=== PATIENT | male | born 1960 | race African-American/Black ===

== ENCOUNTER 2017-01-31 07:39 | Emergency (ER) | payer MEDICAID ==
[~2017-01-31] VITALS: Ht 170.2 cm; Wt 107.0 kg
[~2017-01-31 07:39] MED LIST: ALBU6.7H3 IH; ASPI-518 PO; NITR0.4T49 PO; NITRO SL; PROAIR HFA; SIMV10TA6 PO; SULF1TAB48 PO
[2017-01-31] MEDS ORDERED: LORAZEPAM 0.5MG TABLET PO ONE (08:15)
[2017-01-31 08:27] LABS: HEMATOCRIT. 50.3 % (42.0-52.0); HEMOGLOBIN. 16.8 g/dL (14.0-18.0); MEAN CORPUSCULAR HEMOGLOBIN 29.1 pg (28.0-32.0); MEAN CORPUSCULAR VOLUME 87.2 fL (80.0-94.0); MEAN PLATELET VOLUME 7.9 fl (7.4-10.4); PLATELET 239 x1000/uL (130-400); RED BLOOD CELL COUNT 5.77 mill/uL (4.7-6.1); RED CELL DISTRIBUTION WIDTH 14.6 % (11.6-14.6)
[2017-01-31 08:46] LABS: CARBON DIOXIDE 24 mEq/L (21-32); CHLORIDE 97 mEq/L (98-107); TROPONIN I < 0.02 ng/mL (0.00-0.04)
[2017-01-31] MEDS ORDERED: SODIUM CHLORIDE 0.9% 1,000 ML IV ONE (08:53)
[2017-01-31] MEDS ORDERED: INSULIN REGULAR (HUMULIN R) 300UNITS/3ML IV ONE (09:00)
[2017-01-31 09:49] LABS: PLATELET ESTIMATE NORMAL
[2017-01-31 11:15] VITALS: BP 138/82
== END 2017-01-31 11:48 | disposition home or self-care (01) ==
LOC: ER 07:41
DX: R07.9 Chest pain, unspecified (principal); I10 Essential (primary) hypertension; E11.65 Type 2 diabetes mellitus with hyperglycemia; J45.909 Unspecified asthma, uncomplicated; F41.9 Anxiety disorder, unspecified; F17.200 Nicotine dependence, unspecified, uncomplicated; Z79.82 Long term (current) use of aspirin; Z88.8 Allergy status to other drugs, medicaments and biological substances; Z91.018 Allergy to other foods
CPT/HCPCS: 36415; 71010; 80048; 82962; 84484; 85025; 93005; 96374; 99285; J1815; J7030; Z7610

== ENCOUNTER 2018-05-21 04:44 | Emergency (ER) | payer MEDICAID ==
[~2018-05-21] VITALS: Ht 177.8 cm; Wt 90.0 kg
[~2018-05-21 04:44] MED LIST changes: -ALBU6.7H3 IH; +ALBU6.7H9 IH; +METF-414 PO; -NITRO SL; -SULF1TAB48 PO
[2018-05-21 04:46] VITALS: BP 114/91
== END 2018-05-21 09:31 | disposition left against medical advice (07) ==
LOC: ER 04:44
DX: R10.9 Unspecified abdominal pain (principal); Z53.21 Procedure and treatment not carried out due to patient leaving prior to being seen by health care provider

== ENCOUNTER 2018-10-21 05:30 | Emergency (ER) | payer MEDICAID ==
[~2018-10-21] VITALS: Ht 177.8 cm; Wt 104.0 kg
[2018-10-21] MEDS ORDERED: KETOROLAC 60MG/2ML VIAL IM ONE (07:00)
[2018-10-21] MEDS ORDERED: CYCLOBENZAPRINE 10MG TABLET PO ONE (07:00)
[2018-10-21 08:14] VITALS: BP 138/87
== END 2018-10-21 13:52 | disposition home or self-care (01) ==
LOC: ER 05:30
DX: M54.2 Cervicalgia (principal); M79.18 Myalgia, other site; E11.9 Type 2 diabetes mellitus without complications; J45.909 Unspecified asthma, uncomplicated; I10 Essential (primary) hypertension; Z79.84 Long term (current) use of oral hypoglycemic drugs; Z79.82 Long term (current) use of aspirin; Z91.018 Allergy to other foods; Z91.09 Other allergy status, other than to drugs and biological substances
CPT/HCPCS: 96372; 99283; J1885

== ENCOUNTER 2019-10-26 09:45 | Emergency (ER) | payer MEDICAID ==
[~2019-10-26] VITALS: Ht 172.7 cm; Wt 91.0 kg
[~2019-10-26 09:45] MED LIST changes: -SIMV10TA6 PO; +SIMV10TA97 PO
[2019-10-26] MEDS ORDERED: ACETAMINOPHEN WITH CODEINE 300/30MG TABLET PO ONE (10:30)
[2019-10-26] MEDS ORDERED: KETOROLAC 30MG/ML VIAL IM ONE (11:30)
[2019-10-26 11:47] VITALS: BP 131/85
== END 2019-10-26 11:49 | disposition home or self-care (01) ==
LOC: ER 09:45
DX: M54.5 Low back pain (principal); J45.909 Unspecified asthma, uncomplicated; I25.2 Old myocardial infarction
CPT/HCPCS: 71045; 96372; 99283; J1885

== ENCOUNTER 2022-05-03 02:32 | Emergency (ER) | payer MEDICAID ==
[~2022-05-03 02:32] MED LIST changes: +ALBU6.7H3 IH; -ALBU6.7H9 IH
== END 2022-05-03 04:15 | disposition home or self-care (01) ==
LOC: ER 02:32
DX: R07.89 Other chest pain (principal); R11.2 Nausea with vomiting, unspecified; E11.9 Type 2 diabetes mellitus without complications; I10 Essential (primary) hypertension; J45.909 Unspecified asthma, uncomplicated; I25.10 Atherosclerotic heart disease of native coronary artery without angina pectoris; Z79.82 Long term (current) use of aspirin; Z91.018 Allergy to other foods; Z91.048 Other nonmedicinal substance allergy status
CPT/HCPCS: 99281

== ENCOUNTER 2022-05-04 16:29 | Inpatient (IN) | payer MEDICAID ==
[~2022-05-04] VITALS: Ht 170.2 cm; Wt 85.5 kg
[2022-05-04] MEDS ORDERED: ONDANSETRON 4MG ODT PO NR (23:00)
[2022-05-04] MEDS: ASPIRIN 325MG EC TABLET PO NR (23:09)
[2022-05-04 23:21] LABS: BASOPHILS % 0.5 % (0.0-2.0); EOSINOPHILS % 0.1 % (0.0-5.0); HEMOGLOBIN. 19.2 g/dL (14.0-18.0); LYMPHOCYTES % 11.3 % (20.0-50.0); MEAN CORPUSCULAR HEMOGLOBIN 26.1 pg (28.0-32.0); MEAN PLATELET VOLUME 7.4 fl (7.4-10.4); MONOCYTES % 6.7 % (2.0-8.0); NEUTROPHILS % 81.4 % (40.0-76.0); PLATELET 285 x1000/uL (130-400); RED BLOOD CELL COUNT 7.37 mill/uL (4.7-6.1); RED CELL DISTRIBUTION WIDTH 15.5 % (11.6-14.6)
[2022-05-04 23:28] LABS: CHLORIDE 85 mEq/L (98-107)
[2022-05-04 23:37] LABS: PROTHROMBIN TIME 11.1 sec (9.6-11.0)
[2022-05-04] MEDS ORDERED: SODIUM CHLORIDE 0.9% 1,000 ML IV ONE (23:45)
[2022-05-05] MEDS: ASPIRIN 325MG EC TABLET PO NR ×2 (01:19)
[2022-05-05 04:33] LABS: CLARITY URINE CLEAR (CLEAR); COLOR URINE YELLOW (YELLOW); KETONES URINE NEGATIVE (NEGATIVE); LEUKOCYTE ESTERASE URINE NEGATIVE (NEGATIVE); NITRITE URINE NEGATIVE (NEGATIVE); OCCULT BLOOD URINE NEGATIVE (NEGATIVE); PROTEIN URINE 3+ (NEGATIVE); SPECIFIC GRAVITY URINE 1.018 (1.005-1.030)
[2022-05-05] MEDS ORDERED: ACETAMINOPHEN 325MG TABLET PO PRN (06:30)
[2022-05-05] MEDS ORDERED: DOCUSATE SODIUM 100MG CAPSULE PO PRN (06:30)
[2022-05-05] MEDS ORDERED: TRAMADOL 50MG TABLET PO PRN (06:30)
[2022-05-05] MEDS ORDERED: NA PHOS,M-B/NA PHOS,DI-BA ENEMA 118ML PR PRN (06:30)
[2022-05-05] MEDS ORDERED: MAGNESIUM/ALUMINUM HYDROXIDE/SIMETHICONE 30ML UDC PO PRN (06:30)
[2022-05-05] MEDS ORDERED: DEXT 5%/0.45% NACL 1000ML 1,000 ML IV SCH (06:30)
[2022-05-05] MEDS ORDERED: GUAIFENESIN 200MG/10ML SUGAR FREE UDC PO PRN (06:30)
[2022-05-05] MEDS ORDERED: ONDANSETRON HCL 4MG/2ML INJ IV PRN (06:30)
[2022-05-05] MEDS: AMLODIPINE 10MG TABLET PO SCH (09:00)
[2022-05-05 09:46] VITALS: BP 109/70
[2022-05-05] MEDS: PANTOPRAZOLE SODIUM 40 MG/VIAL IV SCH (09:55)
[2022-05-05] MEDS: ENOXAPARIN 30MG/0.3ML SYR SUBCUT SCH (09:57)
[2022-05-05] MEDS ORDERED: DEXTROSE 50% WATER 50ML SYRINGE IV PRN (10:30)
[2022-05-05] MEDS ORDERED: NALOXONE HCL 0.4MG/ML VIAL IV PRN (10:30)
[2022-05-05] MEDS: SODIUM CHLORIDE 0.9% 1,000 ML IV SCH (11:54)
[2022-05-05 12:00] VITALS: BP 141/92
[2022-05-05] MEDS: BLOOD SUGAR DIAGNOSTIC STRIP TEST SCH ×3 (12:16→20:50)
[2022-05-05] MEDS: INSULIN LISPRO 100 UNITS/ML SUBCUT SCH ×3 (12:38→21:06)
[2022-05-05 16:00] VITALS: BP 112/66
[2022-05-05] MEDS ORDERED: PNEUMOCOCCAL 23-VAL P-SAC VAC 0.5 ML IM ONE (17:15)
[2022-05-05 20:00] VITALS: BP 112/87
[2022-05-06] VITALS: BP 116/69
[2022-05-06] MEDS: SODIUM CHLORIDE 0.9% 1,000 ML IV SCH (01:00)
[2022-05-06 04:00] VITALS: BP 121/75
[2022-05-06 06:44] LABS: HEMATOCRIT. 53.8 % (42.0-52.0); HEMOGLOBIN. 17.7 g/dL (14.0-18.0); MEAN CORPUSCULAR HEMOGLOBIN 26.7 pg (28.0-32.0); MEAN CORPUSCULAR VOLUME 80.9 fL (80.0-94.0); MEAN PLATELET VOLUME 8.1 fl (7.4-10.4); PLATELET 248 x1000/uL (130-400); RED BLOOD CELL COUNT 6.65 mill/uL (4.7-6.1); RED CELL DISTRIBUTION WIDTH 15.4 % (11.6-14.6)
[2022-05-06 07:17] LABS: CHLORIDE 98 mEq/L (98-107)
[2022-05-06 07:26] LABS: HDL CHOLESTEROL 42 mg/dL (40-59); LDL CHOLESTEROL 109 mg/dL (5-100)
[2022-05-06] MEDS: BLOOD SUGAR DIAGNOSTIC STRIP TEST SCH (07:40)
[2022-05-06 08:00] VITALS: BP 119/81
[2022-05-06] MEDS: INSULIN LISPRO 100 UNITS/ML SUBCUT SCH (08:10)
[2022-05-06 08:31] LABS: PLATELET ESTIMATE NORMAL
[2022-05-06] MEDS: AMLODIPINE 10MG TABLET PO SCH (08:50)
[2022-05-06] MEDS: PANTOPRAZOLE SODIUM 40 MG/VIAL IV SCH (08:50)
[2022-05-06] MEDS: ENOXAPARIN 30MG/0.3ML SYR SUBCUT SCH (08:51)
[2022-05-06] MEDS ORDERED: POTASSIUM CHLORIDE 20MEQ TABLET SR PO SCH (10:00)
[2022-05-06 10:40] VITALS: BP 119/81
== END 2022-05-06 12:17 | disposition home or self-care (01) | DRG 469 ==
LOC: ER 16:29 → 7WST 05-05 00:19 → EDBEDREQ 05-05 00:24
PROVIDERS: ADMIT Hospitalist; ATTEND Hospitalist
DX: N17.9 Acute kidney failure, unspecified (principal); D72.829 Elevated white blood cell count, unspecified; E11.9 Type 2 diabetes mellitus without complications; I10 Essential (primary) hypertension; E78.5 Hyperlipidemia, unspecified; R10.9 Unspecified abdominal pain; K59.00 Constipation, unspecified; K40.20 Bilateral inguinal hernia, without obstruction or gangrene, not specified as recurrent; N40.0 Benign prostatic hyperplasia without lower urinary tract symptoms; I25.10 Atherosclerotic heart disease of native coronary artery without angina pectoris; J45.909 Unspecified asthma, uncomplicated; K22.9 Disease of esophagus, unspecified; K44.9 Diaphragmatic hernia without obstruction or gangrene
CPT/HCPCS: 36415; 71045; 74176; 80048; 80053; 80061; 81003; 82962; 83036; 84484; 85025; 93005; 93970; 99285; C9113; J1650; J1815; J7030; Q0162